=== PATIENT | male | born 1995 | race Caucasian/White ===

== ENCOUNTER 2017-05-20 19:57 | Emergency (ER) | payer BC ==
[2017-05-20 20:02] VITALS: RESP 16
[2017-05-20] MEDS ORDERED: AMOXICILLIN/CLAVULANATE POT 875/125 MG TAB PO ONE (20:12)
--- NOTE | 2017-05-20 20:16 | EDPHY ---
H & P Stated Complaint: Dog bite on left pinky finger Time Seen by Provider: 05/20/17 20:13 HPI/ROS: HPI: This is 21 male presents Chief Complaint: Dog bite to left pinky Location: Left pinky Quality: Dog bite Duration: Prior to arrival Signs and Symptoms: + mild bleeding, no radiation, no numbness, no weakness, no tingling, no decreased range of motion, no swelling, no pain Timing: Sudden Severity: Moderate Context: Patient is right-hand dominant, up-to-date on his immunizations, home visiting for the when he was playing with his 3 year old Coon Hound this evening and the dog bit his left pinky finger causing a pretty significant laceration. He is up-to-date on his tetanus. The dog is up-to- date on his vaccinations. Patient denies any paresthesias, skin color changes, significant pain. No nail involvement. Mom had a washes hand with mild soap and water and applied ice. He is to return to [facility] this evening to start the winter on Monday. Modifying Factors: See above Comment: ROS: see HPI Constitutional: No fever, no chills, no weight loss Eyes: No blurred vision Respiratory: No shortness of breath, no cough Cardiovascular: No chest pain Gastrointestinal: No nausea, no vomiting no diarrhea Genitourinary: No dysuria Extremities: No myalgias Neurologic: No weakness, no numbness Skin: No rashes Hematologic: No bruising, no bleeding MEDICAL/SURGICAL/SOCIAL HISTORY: Medical history: Generally healthy. Does not take any regular medications. 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 no globe entrapment, no raccoon eyes. no Rose signs.Tympanic membranes clear. No tympanic membrane rupture. Nares patent; no septal hematoma. Oropharynx clear, no exudate and moist pink mucosa. No malocclusion. no dental trauma. Airway patent. No lymphadenopathy. NECK: supple, no midline tenderness, flexion 45 degrees, extension 45 degrees, right and left lateral flexion 45 degrees. No meningismus. Cardiovascular: Normal S1/S2, regular rate, regular rhythm, without murmur rub or gallop. PULMONARY/CHEST: Symmetrical and nontender. no crepitus. Clear to auscultation bilaterally. Good air movement. No accessory muscle usage. ABDOMEN: Soft, nondistended, nontender, no ecchymosis, no rebound, no guarding , no peritoneal signs, no masses or organomegaly. No CVAT. EXTREMITIES: 2/2 radial pulses, left 5th phalanx distal aspect between DIP joint and nail 2 cm linear laceration, DIP/PIP flexion and extension intact, decreased light touch sensation noted at his finger tip. no clubbing, no cyanosis or edema. NEUROLOGICAL: no focal neuro deficits. GCS 15. SKIN: Warm and dry, no erythema. no rash. Good capillary refill. Source: Patient, Family (mother and father ) - Personal History Current Tetanus/Diphtheria Vaccine: Unsure Current Tetanus Diphtheria and Acellular Pertussis (TDAP): Unsure - Medical/Surgical History Hx Asthma: Yes Hx Chronic Respiratory Disease: No Hx Diabetes: No Hx Cardiac Disease: No Hx Renal Disease: No Hx Cirrhosis: No Hx Alcoholism: No Hx HIV/AIDS: No Hx Splenectomy or Spleen Trauma: No Other PMH: addnoids - Social History Smoking Status: Never smoked Constitutional: Initial Vital Signs Temperature (C) 36.6 C 05/20/17 19:59 Heart Rate 77 05/20/17 19:59 Respiratory Rate 16 05/20/17 19:59 Blood Pressure 138/81 H 05/20/17 19:59 O2 Sat (%) 98 05/20/17 19:59 O2 Delivery Mode Room Air Allergies/Adverse Reactions: egg [eggs] Allergy (Verified 05/20/17 20:04) Milk Containing Products [dairy] Allergy (Verified 05/20/17 20:04) tree nut [Nuts] Allergy (Verified 05/20/17 20:04) fruit Allergy (Uncoded 05/20/17 20:04) Home Medications: Medication Instructions Recorded Amoxicillin/Clavulanate Pot 875 mg PO BID #14 tab 05/20/17 [Augmentin 875 MG TAB (*)] VYVANSE 05/20/17 Medical Decision Making Procedures: Procedure: Laceration repair. Verbal consent was obtained from the patient. The 2 cm deep linear laceration on the left 5th digit and 1 cm linear laceration was anesthetized in the usual fashion using a digital block. The wound was irrigated, draped and explored to its base with a gloved finger. There were no deep structures involved. No tendon injury was identified. The wound was repaired with #9, 5-0 Prolene in simple interrupted pattern. The procedure was performed by myself. Procedure: Splint placement. A finger splint was applied by the emergency room nuclear medicine technician. After application of the splint I returned and re-examined the patient. The splint was adequately immobilizing the joint and distal to the splint the patient's circulation and sensation was intact. ED Course/Re-evaluation: Tetanus up-to-date Rabies prophylaxis not indicated Given Augmentin 8 mg in the ED as well as script. Parents and patient politely declined any x-ray imaging has no pain and full range of motion. No signs of neurovascular compromise/tenting of skin/compartment syndrome/ extremities and joints examined above and below area of concern and are neurovascularly intact. Wound and laceration repair ordered. Xeroform, Kerlix, finger splint applied. Differential Diagnosis: Differential diagnosis includes but is not limited to laceration, phalanx fracture, nerve injury, tendon injury, nail involvement. - Data Points Medications Given: Discontinued Medications Amoxicillin/Clavulanate Potassium (Augmentin 875mg) 875 mg PO EDNOW ONE PRN Reason: Protocol Stop: 05/20/17 20:13 Last Admin: 05/20/17 20:16 Dose: 875 mg Departure - Departure Disposition: Home, Routine, Self-Care Clinical Impression: Dog bite of finger Qualifiers: Encounter type: initial encounter Qualified Code(s): S61.259A - Open bite of unspecified finger without damage to nail, initial encounter Laceration of left little finger w/o foreign body w/o damage to nail Qualifiers: Encounter type: initial encounter Qualified Code(s): S61.217A - Laceration without foreign body of left little finger without damage to nail, initial encounter Condition: Good Instructions: Animal Bite (ED), Care For Your Stitches (ED), Finger Laceration (ED) Additional Instructions: Keep the dressing and splint in place for 48-72 hours. After 48-72 hours, you may remove the dressing; wash the site daily with mild soap and water; then pat dry. Take ibuprofen 600 mg every 8 hours with food as needed for pain. Apply ice for 30 minutes at a time; 2-3 times per day for the next 1-2 days. Take all of the antibiotic as directed until complete. Monitor for signs of infection. Please return to the emergency room or [facility] for suture removal in 7-10 days. If you have decreased range of motion, decreased sensation or increased pain, please follow-up with Orthopedics for re-evaluation. Referrals: Werner Miller MD [Medical Doctor] - As per Instructions Prescriptions: Amoxicillin/Clavulanate Pot [Augmentin 875 MG TAB (*)] 875 mg PO BID #14 tab
[2017-05-20] MEDS ORDERED: ACETAMINOPHEN 500 MG TAB PO ONE (21:14)
[2017-05-20 21:23] VITALS: BP 123/78; PULSE 62; TEMP 98.4; O2SAT 96
== END 2017-05-20 21:23 | disposition home or self-care (01) ==
PROC: 0HQGXZZ Repair Left Hand Skin, External Approach (ICD-10-PCS; principal; 2017-05-20)
DX: S61.257A Open bite of left little finger without damage to nail, initial encounter (principal); J45.909 Unspecified asthma, uncomplicated; W54.0XXA Bitten by dog, initial encounter
CPT/HCPCS: L3925